=== PATIENT | female | born 1970 | race Two or more races ===

== ENCOUNTER 2023-01-27 14:52 | Inpatient (IN) | payer MEDICARE, MEDICAID ==
[~2023-01-27] VITALS: Ht 315 cm; Wt 104.8 kg
[2023-01-27] VITALS (8 sets, daily range): BP systolic 100–121; BP diastolic 41–65
[2023-01-27 16:20] LABS: BASOPHILS % 0.5 % (0.0-2.0); HEMATOCRIT. 35.6 % (36.0-48.0); HEMOGLOBIN. 11.4 g/dL (12.0-16.0); LYMPHOCYTES % 17.1 % (20.0-50.0); MEAN CORPUSCULAR VOLUME 84.3 fL (81.0-99.0); MEAN PLATELET VOLUME 8.5 fl (7.4-10.4); MONOCYTES % 4.4 % (2.0-8.0); PLATELET 325 x1000/uL (130-400); RED BLOOD CELL COUNT 4.23 mill/uL (4.2-5.4); RED CELL DISTRIBUTION WIDTH 16.6 % (11.6-14.6)
[2023-01-27 16:24] LABS: CHLORIDE 102 mEq/L (98-107)
[2023-01-27 16:27] LABS: BG BASE EXCESS 1.4 mmol/L (-2.0-2.0); BG CARBOXYHEMOGLOBIN 1.1 % (0.5-1.5); BG FRACTION INSPIRED OXYGEN 21; BG HCO3 ACT 24.5 mmol/L (22.0-26.0); BG METHEMOGLOBIN 0.3 % (0.0-1.5); BG OXYGEN SATURATION 93.9 % (92.0-98.5); BG OXYHEMOGLOBIN 92.6 % (94.0-97.0); BG PCO2 33.5 mmHg (35.0-45.0); BG PH 7.482 (7.350-7.450); BG SAMPLE SITE RIGHT RADIAL; BG TOTAL HEMOGLOBIN 11.2 g/dL (12.0-18.0); BG VENT MODE ROOM AIR
[2023-01-27 16:29] LABS: PROTHROMBIN TIME 10.9 sec (9.6-11.0)
[2023-01-27 16:33] LABS: ETHANOL BLOOD < 10 mg/dL
[2023-01-27] MEDS ORDERED: DEXAMETHASONE 4MG/ML 1ML VIAL IV ONE (17:30)
[2023-01-27] MEDS ORDERED: LEVETIRACETAM 1000MG PREMIX 100 ML IV ONE (17:30)
[2023-01-27] MEDS ORDERED: NICARDIPINE 40MG/200ML PREMIX 200 ML IV PRN (18:00)
[2023-01-27] MEDS ORDERED: SODIUM CHLORIDE 0.9% 1,000 ML IV SCH (20:45)
[2023-01-27] MEDS ORDERED: IPRATROPIUM/ALBUTEROL 0.5-3(2.5)MG/3ML NEB NEB PRN (20:45)
[2023-01-27] MEDS ORDERED: ONDANSETRON HCL 4MG/2ML INJ IV PRN (20:45)
[2023-01-27] MEDS ORDERED: ACETAMINOPHEN 650MG SUPP PR PRN ×2 (20:45)
[2023-01-27] MEDS ORDERED: MORPHINE SULFATE 2 MG/ML CPJ (NOT FOR IM USE) IV PRN (21:00)
[2023-01-27] MEDS ORDERED: NALOXONE HCL 0.4MG/ML VIAL IV PRN (21:15)
[2023-01-27] MEDS ORDERED: NICARDIPINE 100 MG in SODIUM CHLORIDE 0.9% 60 ML IV PRN ×2 (22:00→22:15)
[2023-01-27] MEDS: DEXT 5%/LACTATED RINGERS 1,000 ML IV SCH (22:07)
[2023-01-27] MEDS ORDERED: FERR325T30 PO (23:03)
[2023-01-27] MEDS ORDERED: AMOX-494 PO (23:26)
[2023-01-27] MEDS ORDERED: GABA-532 PO (23:26)
[2023-01-27] MEDS ORDERED: [UNRECOGNIZED DRUG - CODE] IM (23:26)
[2023-01-27] MEDS ORDERED: SENN-257 PO (23:26)
[2023-01-27] MEDS ORDERED: ATOR10TA69 PO (23:26)
[2023-01-27] MEDS ORDERED: METF-414 PO (23:26)
[2023-01-27] MEDS ORDERED: CHOL-36 PO (23:26)
[2023-01-27] MEDS ORDERED: PANT40TA51 PO (23:26)
[2023-01-27] MEDS: DEXAMETHASONE 4MG/ML 1ML VIAL IV SCH (23:45)
[2023-01-27] MEDS ORDERED: DEXTROSE 50% WATER 50ML SYRINGE IV PRN (23:45)
[2023-01-28] VITALS (92 sets, daily range): BP systolic 41–167; BP diastolic 27–106
[2023-01-28 01:37] LABS: CREATINE KINASE 54 IU/L (26-192); CREATINE KINASE MB FRACTION < 1.0 ng/mL (0.5-3.6)
[2023-01-28] MEDS: KCL 20MEQ/100ML PREMIX 100 ML IV SCH ×4 (01:47→13:49)
[2023-01-28 05:40] LABS: HEMATOCRIT. 34.1 % (36.0-48.0); HEMOGLOBIN. 10.9 g/dL (12.0-16.0); MEAN CORPUSCULAR HEMOGLOBIN 26.9 pg (28.0-32.0); MEAN CORPUSCULAR VOLUME 84.3 fL (81.0-99.0); MEAN PLATELET VOLUME 8.5 fl (7.4-10.4); MONOCYTES % 0.9 % (2.0-8.0); NEUTROPHILS % 84.1 % (40.0-76.0); PLATELET 326 x1000/uL (130-400); RED BLOOD CELL COUNT 4.05 mill/uL (4.2-5.4); RED CELL DISTRIBUTION WIDTH 17.3 % (11.6-14.6)
[2023-01-28] MEDS: DEXAMETHASONE 4MG/ML 1ML VIAL IV SCH ×3 (06:19→17:33)
[2023-01-28] MEDS: BLOOD SUGAR DIAGNOSTIC STRIP TEST SCH ×4 (06:19→20:02)
[2023-01-28] MEDS: INSULIN LISPRO 100 UNITS/ML SUBCUT SCH ×4 (06:24→20:19)
[2023-01-28 06:58] LABS: CHLORIDE 105 mEq/L (98-107)
[2023-01-28 07:15] LABS: HDL CHOLESTEROL 58 mg/dL (40-59); LDL CHOLESTEROL 65 mg/dL (5-100); PHOSPHORUS 2.6 mg/dL (2.5-4.9); T4 FREE 0.74 ng/dL (0.76-1.46)
[2023-01-28 08:33] LABS: BG BASE EXCESS 2.7 mmol/L (-2.0-2.0); BG CARBOXYHEMOGLOBIN 0.8 % (0.5-1.5); BG FRACTION INSPIRED OXYGEN 28; BG HCO3 ACT 26.4 mmol/L (22.0-26.0); BG METHEMOGLOBIN 0.3 % (0.0-1.5); BG OXYHEMOGLOBIN 95.9 % (94.0-97.0); BG PH 7.471 (7.350-7.450); BG PO2 97.2 mmHg (75.0-100.0); BG SAMPLE SITE RIGHT BRACHIAL; BG TOTAL HEMOGLOBIN 10.7 g/dL (12.0-18.0); BG VENT MODE NASAL CANNULA
[2023-01-28] MEDS ORDERED: MANNITOL 20% (20GM/100ML) BAG 500ML PREMIX IV ONE ×2 (08:45→22:15)
[2023-01-28] MEDS ORDERED: MANNITOL 20% 250 ML IV ONE (09:00)
[2023-01-28] MEDS ORDERED: MANNITOL 20% 100 ML IV ONE (09:00)
[2023-01-28] MEDS ORDERED: LEVETIRACETAM 500MG PREMIX 100 ML IV SCH (09:00)
[2023-01-28] MEDS: PANTOPRAZOLE SODIUM 40 MG/VIAL IV SCH (09:06)
[2023-01-28 09:09] LABS: CREATINE KINASE 52 IU/L (26-192); CREATINE KINASE MB FRACTION < 1.0 ng/mL (0.5-3.6)
[2023-01-28] MEDS ORDERED: MANNITOL 20% 100 ML IV NR (09:30)
[2023-01-28] MEDS: LEVETIRACETAM 500MG PREMIX 100 ML IV SCH ×2 (10:21→20:02)
[2023-01-28] MEDS: DEXT 5%/LACTATED RINGERS 1,000 ML IV SCH (13:49)
[2023-01-28] MEDS: DOPAMINE 400MG/250ML PREMIX 250 ML IV PRN (21:35)
[2023-01-28] MEDS ORDERED: MANNITOL 20% 125 ML IV NR (22:30)
[2023-01-29] VITALS (96 sets, daily range): BP systolic 87–162; BP diastolic 33–117
[2023-01-29] MEDS: DEXAMETHASONE 4MG/ML 1ML VIAL IV SCH ×4 (00:16→18:46)
[2023-01-29] MEDS: BLOOD SUGAR DIAGNOSTIC STRIP TEST SCH ×4 (05:44→20:33)
[2023-01-29 05:48] LABS: HEMATOCRIT 29.4 % (36.0-48.0); HEMOGLOBIN 10.3 g/dL (12.0-16.0); MEAN CORPUSCULAR HEMOGLOBIN 30.1 pg (28.0-32.0); MEAN CORPUSCULAR VOLUME 85.5 fL (81.0-99.0); PLATELET 142 x1000/uL (130-400); RED BLOOD CELL COUNT 3.44 mill/uL (4.2-5.4); RED CELL DISTRIBUTION WIDTH 17.7 % (11.6-14.6)
[2023-01-29 05:49] LABS: CHLORIDE 108 mEq/L (98-107)
[2023-01-29] MEDS: INSULIN LISPRO 100 UNITS/ML SUBCUT SCH ×4 (05:50→20:56)
[2023-01-29] MEDS: DEXT 5%/LACTATED RINGERS 1,000 ML IV SCH (08:41)
[2023-01-29] MEDS: LEVETIRACETAM 500MG PREMIX 100 ML IV SCH ×2 (08:42→20:55)
[2023-01-29] MEDS: PANTOPRAZOLE SODIUM 40 MG/VIAL IV SCH (08:42)
[2023-01-29] MEDS: DOPAMINE 400MG/250ML PREMIX 250 ML IV PRN (10:30)
[2023-01-29 18:14] LABS: CLARITY URINE CLOUDY (CLEAR); COLOR URINE YELLOW (YELLOW); KETONES URINE NEGATIVE (NEGATIVE); LEUKOCYTE ESTERASE URINE TRACE (NEGATIVE); NITRITE URINE POSITIVE (NEGATIVE); OCCULT BLOOD URINE TRACE (NEGATIVE); PROTEIN URINE NEGATIVE (NEGATIVE); SPECIFIC GRAVITY URINE 1.024 (1.005-1.030)
[2023-01-29 18:31] LABS: *AMPHETAMINES SCREEN URINE NEGATIVE (NEGATIVE); *BARBITURATES SCREEN URINE NEGATIVE (NEGATIVE); *BENZODIAZEPINES SCREEN URINE NEGATIVE (NEGATIVE); *COCAINE SCREEN URINE NEGATIVE (NEGATIVE); CANNABINOID URINE SCREEN NEGATIVE (NEGATIVE); METHADONE URINE SCREEN NEGATIVE (NEGATIVE); OPIATES URINE SCREEN NEGATIVE (NEGATIVE); PHENCYCLIDINE URINE SCREEN NEGATIVE (NEGATIVE)
[2023-01-29] MEDS ORDERED: ATROPINE SULFATE 1MG/10ML SYR IV NR (21:00)
[2023-01-30] VITALS (88 sets, daily range): BP systolic 53–244; BP diastolic 19–180
[2023-01-30] MEDS: DOPAMINE 400MG/250ML PREMIX 250 ML IV PRN ×2 (00:14→16:38)
[2023-01-30] MEDS: ATROPINE SULFATE 1MG/10ML SYR IV PRN ×2 (01:19→09:01)
[2023-01-30] MEDS: DEXT 5%/LACTATED RINGERS 1,000 ML IV SCH ×2 (01:46→16:22)
[2023-01-30 05:21] LABS: HEMATOCRIT 33.1 % (36.0-48.0); HEMOGLOBIN 10.8 g/dL (12.0-16.0); MEAN CORPUSCULAR HEMOGLOBIN 27.3 pg (28.0-32.0); MEAN CORPUSCULAR VOLUME 83.9 fL (81.0-99.0); PLATELET 324 x1000/uL (130-400); RED BLOOD CELL COUNT 3.94 mill/uL (4.2-5.4); RED CELL DISTRIBUTION WIDTH 17.3 % (11.6-14.6)
[2023-01-30 05:41] LABS: CHLORIDE 106 mEq/L (98-107)
[2023-01-30] MEDS: BLOOD SUGAR DIAGNOSTIC STRIP TEST SCH ×4 (06:18→21:19)
[2023-01-30] MEDS: INSULIN LISPRO 100 UNITS/ML SUBCUT SCH ×4 (06:19→21:00)
[2023-01-30] MEDS: LEVETIRACETAM 500MG PREMIX 100 ML IV SCH ×2 (09:01→21:19)
[2023-01-30] MEDS: PANTOPRAZOLE SODIUM 40 MG/VIAL IV SCH (09:01)
[2023-01-30] MEDS ORDERED: CEFTRIAXONE 1GM PREMIX 50 ML IV SCH (15:15)
[2023-01-30] MEDS: CEFTRIAXONE 1,000 MG in DEXTROSE 5% WATER 50 ML IV SCH (16:22)
[2023-01-30] MEDS: KCL 20MEQ/100ML PREMIX 100 ML IV SCH ×2 (16:22→19:37)
[2023-01-31] VITALS (50 sets, daily range): BP systolic 96–170; BP diastolic 0–146
[2023-01-31 05:06] LABS: HEMATOCRIT 34.3 % (36.0-48.0); MEAN CORPUSCULAR VOLUME 83.9 fL (81.0-99.0); PLATELET 308 x1000/uL (130-400); RED BLOOD CELL COUNT 4.09 mill/uL (4.2-5.4); RED CELL DISTRIBUTION WIDTH 17.1 % (11.6-14.6)
[2023-01-31 05:33] LABS: CHLORIDE 105 mEq/L (98-107)
[2023-01-31] MEDS: BLOOD SUGAR DIAGNOSTIC STRIP TEST SCH ×4 (05:53→20:40)
[2023-01-31] MEDS: INSULIN LISPRO 100 UNITS/ML SUBCUT SCH ×4 (06:28→20:39)
[2023-01-31] MEDS: PANTOPRAZOLE SODIUM 40 MG/VIAL IV SCH (09:05)
[2023-01-31] MEDS: LEVETIRACETAM 500MG PREMIX 100 ML IV SCH ×2 (09:05→20:37)
[2023-01-31] MEDS: DEXT 5%/LACTATED RINGERS 1,000 ML IV SCH (09:05)
[2023-01-31] MEDS: DOPAMINE 400MG/250ML PREMIX 250 ML IV PRN (09:06)
[2023-01-31] MEDS ORDERED: GADOTERATE MEGLUMINE 5 MMOL/10 ML VIAL IV ONE (10:13)
[2023-01-31] MEDS: CEFTRIAXONE 1,000 MG in DEXTROSE 5% WATER 50 ML IV SCH (18:27)
[2023-02-01] VITALS (65 sets, daily range): BP systolic 42–139; BP diastolic 16–83
[2023-02-01] MEDS ORDERED: DOPAMINE 400MG/250ML PREMIX 250 ML IV PRN (00:30)
[2023-02-01] MEDS: DEXT 5%/LACTATED RINGERS 1,000 ML IV SCH ×2 (05:21→17:09)
[2023-02-01 05:29] LABS: HEMATOCRIT 36.3 % (36.0-48.0); HEMOGLOBIN 11.8 g/dL (12.0-16.0); MEAN CORPUSCULAR HEMOGLOBIN 27.1 pg (28.0-32.0); MEAN CORPUSCULAR VOLUME 83.5 fL (81.0-99.0); PLATELET 294 x1000/uL (130-400); RED BLOOD CELL COUNT 4.34 mill/uL (4.2-5.4); RED CELL DISTRIBUTION WIDTH 16.8 % (11.6-14.6)
[2023-02-01 05:34] LABS: CHLORIDE 100 mEq/L (98-107)
[2023-02-01] MEDS: INSULIN LISPRO 100 UNITS/ML SUBCUT SCH ×4 (06:06→21:00)
[2023-02-01] MEDS: BLOOD SUGAR DIAGNOSTIC STRIP TEST SCH ×4 (06:06→21:09)
[2023-02-01] MEDS ORDERED: POTASSIUM CHLORIDE INJ 40 MEQ in DEXT 5% WATER 250 ML IV ONE (08:00)
[2023-02-01] MEDS: LEVETIRACETAM 500MG PREMIX 100 ML IV SCH ×2 (08:37→21:10)
[2023-02-01] MEDS: KCL 20MEQ/100ML X 2 FOR TOTAL KCL 40MEQ/200ML IV SCH ×2 (08:38→12:19)
[2023-02-01] MEDS: PANTOPRAZOLE SODIUM 40 MG/VIAL IV SCH (08:38)
[2023-02-01] MEDS: THEOPHYLLINE ANHYDROUS 80 MG/15 ML 120ML PO SCH ×2 (12:00→17:11)
[2023-02-01] MEDS: CEFTRIAXONE 1,000 MG in DEXTROSE 5% WATER 50 ML IV SCH (17:09)
[2023-02-02] VITALS (29 sets, daily range): BP systolic 55–219; BP diastolic 22–165
[2023-02-02] MEDS: THEOPHYLLINE ANHYDROUS 80 MG/15 ML 120ML PO SCH ×5 (05:37→23:22)
[2023-02-02] MEDS: BLOOD SUGAR DIAGNOSTIC STRIP TEST SCH ×4 (05:37→20:35)
[2023-02-02 05:49] LABS: HEMATOCRIT 37.3 % (36.0-48.0); HEMOGLOBIN 11.8 g/dL (12.0-16.0); MEAN CORPUSCULAR VOLUME 85.6 fL (81.0-99.0); PLATELET 262 x1000/uL (130-400); RED BLOOD CELL COUNT 4.36 mill/uL (4.2-5.4); RED CELL DISTRIBUTION WIDTH 17.3 % (11.6-14.6)
[2023-02-02 06:05] LABS: CHLORIDE 102 mEq/L (98-107)
[2023-02-02] MEDS: INSULIN LISPRO 100 UNITS/ML SUBCUT SCH ×4 (07:00→20:39)
[2023-02-02] MEDS: PANTOPRAZOLE SODIUM 40 MG/VIAL IV SCH (09:29)
[2023-02-02] MEDS: LEVETIRACETAM 500MG PREMIX 100 ML IV SCH ×2 (09:29→20:35)
[2023-02-02] MEDS: DEXT 5%/LACTATED RINGERS 1,000 ML IV SCH (09:59)
[2023-02-02] MEDS ORDERED: BISACODYL 10MG SUPP PR NR (18:00)
[2023-02-02] MEDS: CEFTRIAXONE 1,000 MG in DEXTROSE 5% WATER 50 ML IV SCH (18:14)
[2023-02-02 20:55] LABS: TOTAL IRON BINDING CAPACITY 411 ug/dL (250-450)
[2023-02-02 22:17] LABS: FERRITIN 9 ng/mL (10-291)
[2023-02-02 22:26] LABS: FOLIC ACID (FOLATE) SERUM >20 ng/mL ng/mL (>5.38); VITAMIN B12 SERUM 371 pg/mL (211-911)
[2023-02-03] VITALS (10 sets, daily range): BP systolic 95–126; BP diastolic 47–98
[2023-02-03] MEDS: DEXT 5%/LACTATED RINGERS 1,000 ML IV SCH (03:00)
[2023-02-03] MEDS: THEOPHYLLINE ANHYDROUS 80 MG/15 ML 120ML PO SCH ×3 (06:00→17:00)
[2023-02-03 06:24] LABS: BASOPHILS % 0.1 % (0.0-2.0); EOSINOPHILS % 2.2 % (0.0-5.0); HEMATOCRIT. 34.2 % (36.0-48.0); HEMOGLOBIN. 11.2 g/dL (12.0-16.0); LYMPHOCYTES % 36.9 % (20.0-50.0); MEAN CORPUSCULAR HEMOGLOBIN 27.5 pg (28.0-32.0); MEAN CORPUSCULAR VOLUME 83.9 fL (81.0-99.0); MEAN PLATELET VOLUME 8.4 fl (7.4-10.4); NEUTROPHILS % 53.8 % (40.0-76.0); PLATELET 266 x1000/uL (130-400); RED BLOOD CELL COUNT 4.08 mill/uL (4.2-5.4); RED CELL DISTRIBUTION WIDTH 17.1 % (11.6-14.6)
[2023-02-03] MEDS: INSULIN LISPRO 100 UNITS/ML SUBCUT SCH ×3 (08:00→17:00)
[2023-02-03] MEDS: BLOOD SUGAR DIAGNOSTIC STRIP TEST SCH ×3 (08:20→16:59)
[2023-02-03] MEDS: LEVETIRACETAM 500MG PREMIX 100 ML IV SCH (08:46)
[2023-02-03] MEDS ORDERED: FAMOTIDINE 20MG/2ML VIAL IV SCH (09:00)
[2023-02-03 09:40] LABS: CHLORIDE 103 mEq/L (98-107)
[2023-02-03] MEDS ORDERED: POTASSIUM CHLORIDE INJ 40 MEQ in DEXT 5% WATER 250 ML IV ONE (11:45)
[2023-02-03] MEDS ORDERED: IPRATROPIUM BROMIDE (0.02%) 0.5MG/2.5ML NEB HHN PRN (12:00)
[2023-02-03] MEDS ORDERED: IPRATROPIUM/ALBUTEROL 0.5-3(2.5)MG/3ML NEB HHN PRN (12:00)
[2023-02-03] MEDS ORDERED: ALBUTEROL (0.083%) 2.5MG/3ML NEB HHN PRN (12:00)
[2023-02-03] MEDS: KCL 20MEQ/100ML X 2 FOR TOTAL KCL 40MEQ/200ML IV SCH ×2 (13:12→15:37)
[2023-02-03] MEDS ORDERED: IRON SUCROSE COMPLEX 100 MG/5 ML ML IV SCH (16:00)
[2023-02-03] MEDS: CEFTRIAXONE 1,000 MG in DEXTROSE 5% WATER 50 ML IV SCH (16:57)
== END 2023-02-03 18:39 | DRG 65 ==
LOC: ER 14:52 → EDBEDREQSVC 19:55 → EDBEDREQ 19:55 → EDBEDREQTM 19:55 → MICUNO 20:44 → SUPCPDRO 21:13 → MICUSO 01-29 15:38 → 5EST 02-02 10:50
PROVIDERS: ADMIT Internal Medicine; ATTEND Internal Medicine
PROC: 4A00X4Z Measurement of Central Nervous Electrical Activity, External Approach (ICD-10-PCS; principal; 2023-01-28)
PROC: 02HV33Z Insertion of Infusion Device into Superior Vena Cava, Percutaneous Approach (ICD-10-PCS; 2023-01-29)
PROC: B548ZZA Ultrasonography of Superior Vena Cava, Guidance (ICD-10-PCS; 2023-01-29)
DX: I62.9 Nontraumatic intracranial hemorrhage, unspecified (principal); C79.9 Secondary malignant neoplasm of unspecified site; C95.90 Leukemia, unspecified not having achieved remission; G93.40 Encephalopathy, unspecified; I42.9 Cardiomyopathy, unspecified; N39.0 Urinary tract infection, site not specified; E11.9 Type 2 diabetes mellitus without complications; E87.6 Hypokalemia; I10 Essential (primary) hypertension; R06.03 Acute respiratory distress; I95.9 Hypotension, unspecified; E78.5 Hyperlipidemia, unspecified; R00.1 Bradycardia, unspecified; Z85.028 Personal history of other malignant neoplasm of stomach; Z85.830 Personal history of malignant neoplasm of bone; Z85.89 Personal history of malignant neoplasm of other organs and systems
CPT/HCPCS: 36415; 36573; 36600; 70496; 70553; 71045; 80048; 80053; 80061; 80305; 80320; 81003; 82375; 82550; 82553; 82607; 82728; 82746; 82805; 82962; 83036; 83540; 83550; 83605; 83735; 84100; 84145; 84439; 84443; 84481; 84484; 85025; 85027; 85044; 92610; 93005; 93306; 97110; 97162; 97167; 97530; 99291; A6261; A9577; C1725; C9113; J0461; J0696; J1100; J1265; J1815; J1953; J2270; J3480; J3490; J7060; A4315; A5200; G0480

== ENCOUNTER 2023-02-03 19:48 | Inpatient (IN) | payer MEDICARE, MEDICAID ==
[~2023-02-03] VITALS: Ht 162.6 cm; Wt 104.8 kg
[~2023-02-03 19:48] MED LIST: AMOX-494 PO; ATOR10TA69 PO; CHOL-36 PO; FERR325T30 PO; GABA-532 PO; METF-414 PO; PANT40TA51 PO; SENN-257 PO; [UNRECOGNIZED DRUG - CODE] IM
[2023-02-03 20:00] VITALS: BP 115/54
[2023-02-03] MEDS ORDERED: ACETAMINOPHEN 650MG SUPP PR PRN (20:45)
[2023-02-03] MEDS ORDERED: ONDANSETRON HCL 4MG/2ML INJ IV PRN (20:45)
[2023-02-03] MEDS ORDERED: ACETAMINOPHEN 325MG TABLET PO PRN (20:45)
[2023-02-03] MEDS ORDERED: ALBUTEROL (0.083%) 2.5MG/3ML NEB HHN PRN (20:45)
[2023-02-03] MEDS ORDERED: IPRATROPIUM BROMIDE (0.02%) 0.5MG/2.5ML NEB HHN PRN (20:45)
[2023-02-03] MEDS ORDERED: MORPHINE SULFATE 2 MG/ML CPJ (NOT FOR IM USE) IV PRN (20:45)
[2023-02-03] MEDS: BLOOD SUGAR DIAGNOSTIC STRIP TEST SCH (21:00)
[2023-02-03] MEDS ORDERED: DEXTROSE 50% WATER 50ML SYRINGE IV PRN (21:00)
[2023-02-03] MEDS: INSULIN LISPRO 100 UNITS/ML SUBCUT SCH (21:00)
[2023-02-03] MEDS ORDERED: KCL 20MEQ/100ML PREMIX 100 ML IV NR (22:00)
[2023-02-03] MEDS: LACTATED RINGERS 1,000 ML IV SCH (23:13)
[2023-02-03] MEDS: FAMOTIDINE 20MG/2ML VIAL IV SCH (23:14)
[2023-02-03] MEDS: LEVETIRACETAM 500MG PREMIX 100 ML IV SCH (23:32)
[2023-02-04] MEDS: THEOPHYLLINE ANHYDROUS 80 MG/15 ML 120ML PO SCH ×4 (06:00→17:26)
[2023-02-04] MEDS: BLOOD SUGAR DIAGNOSTIC STRIP TEST SCH ×4 (06:30→21:51)
[2023-02-04 06:48] LABS: BASOPHILS % 0.3 % (0.0-2.0); EOSINOPHILS % 3.3 % (0.0-5.0); HEMATOCRIT. 32.7 % (36.0-48.0); HEMOGLOBIN. 10.4 g/dL (12.0-16.0); LYMPHOCYTES % 21.2 % (20.0-50.0); MEAN CORPUSCULAR HEMOGLOBIN 27.3 pg (28.0-32.0); MEAN CORPUSCULAR VOLUME 85.5 fL (81.0-99.0); MEAN PLATELET VOLUME 8.3 fl (7.4-10.4); MONOCYTES % 10.3 % (2.0-8.0); NEUTROPHILS % 64.9 % (40.0-76.0); PLATELET 218 x1000/uL (130-400); RED BLOOD CELL COUNT 3.83 mill/uL (4.2-5.4); RED CELL DISTRIBUTION WIDTH 17.2 % (11.6-14.6)
[2023-02-04 07:59] LABS: CHLORIDE 105 mEq/L (98-107)
[2023-02-04 08:00] VITALS: BP 108/55
[2023-02-04] MEDS: LEVETIRACETAM 500MG PREMIX 100 ML IV SCH ×2 (08:02→21:41)
[2023-02-04] MEDS: FAMOTIDINE 20MG/2ML VIAL IV SCH ×2 (08:02→21:41)
[2023-02-04] MEDS: INSULIN LISPRO 100 UNITS/ML SUBCUT SCH ×4 (08:13→21:00)
[2023-02-04] MEDS: LACTATED RINGERS 1,000 ML IV SCH (16:02)
[2023-02-04] MEDS ORDERED: NALOXONE HCL 0.4MG/ML VIAL IV PRN (16:45)
[2023-02-04] MEDS ORDERED: CEFTRIAXONE 1,000 MG in DEXTROSE 5% WATER 50 ML IV SCH (17:00)
[2023-02-04] MEDS ORDERED: IRON SUCROSE COMPLEX 100 MG/5 ML ML IV SCH (18:00)
[2023-02-04] MEDS: IRON SUCROSE COMPLEX 200 MG in SODIUM CHLORIDE 0.9% 100 ML IV SCH (18:30)
[2023-02-04 20:30] VITALS: BP 134/55
[2023-02-05] MEDS: THEOPHYLLINE ANHYDROUS 80 MG/15 ML 120ML PO SCH ×4 (05:32→17:30)
[2023-02-05] MEDS: BLOOD SUGAR DIAGNOSTIC STRIP TEST SCH ×4 (05:33→21:26)
[2023-02-05 08:00] VITALS: BP 130/56
[2023-02-05] MEDS: FAMOTIDINE 20MG/2ML VIAL IV SCH ×2 (08:12→21:24)
[2023-02-05] MEDS: LEVETIRACETAM 500MG PREMIX 100 ML IV SCH ×2 (08:12→21:25)
[2023-02-05] MEDS: INSULIN LISPRO 100 UNITS/ML SUBCUT SCH ×4 (09:00→21:00)
[2023-02-05] MEDS: IRON SUCROSE COMPLEX 200 MG in SODIUM CHLORIDE 0.9% 100 ML IV SCH (17:30)
[2023-02-05 20:15] VITALS: BP 139/40
[2023-02-05] MEDS: LACTATED RINGERS 1,000 ML IV SCH (21:43)
[2023-02-06] MEDS: THEOPHYLLINE ANHYDROUS 80 MG/15 ML 120ML PO SCH ×4 (05:20→18:26)
[2023-02-06] MEDS: INSULIN LISPRO 100 UNITS/ML SUBCUT SCH ×3 (07:44→21:00)
[2023-02-06 07:59] VITALS: BP 121/63
[2023-02-06] MEDS: FAMOTIDINE 20MG/2ML VIAL IV SCH ×2 (08:30→20:55)
[2023-02-06] MEDS: LEVETIRACETAM 500MG PREMIX 100 ML IV SCH ×2 (08:30→20:55)
[2023-02-06 20:01] VITALS: BP 134/76
[2023-02-06] MEDS: BLOOD SUGAR DIAGNOSTIC STRIP TEST SCH (20:55)
[2023-02-07] MEDS: LACTATED RINGERS 1,000 ML IV SCH ×2 (00:27→09:40)
[2023-02-07] MEDS: THEOPHYLLINE ANHYDROUS 80 MG/15 ML 120ML PO SCH ×4 (00:27→18:33)
[2023-02-07] MEDS: BLOOD SUGAR DIAGNOSTIC STRIP TEST SCH ×2 (06:49→21:00)
[2023-02-07 08:00] VITALS: BP 137/56
[2023-02-07] MEDS: LEVETIRACETAM 500MG PREMIX 100 ML IV SCH ×2 (09:39→21:09)
[2023-02-07] MEDS: FAMOTIDINE 20MG/2ML VIAL IV SCH ×2 (09:44→21:09)
[2023-02-07 15:17] LABS: BASOPHILS % 0.4 % (0.0-2.0); EOSINOPHILS % 0.6 % (0.0-5.0); HEMATOCRIT. 36.4 % (36.0-48.0); HEMOGLOBIN. 11.8 g/dL (12.0-16.0); LYMPHOCYTES % 26.4 % (20.0-50.0); MEAN CORPUSCULAR HEMOGLOBIN 27.6 pg (28.0-32.0); MEAN CORPUSCULAR VOLUME 84.8 fL (81.0-99.0); MEAN PLATELET VOLUME 7.9 fl (7.4-10.4); MONOCYTES % 8.3 % (2.0-8.0); NEUTROPHILS % 64.3 % (40.0-76.0); PLATELET 341 x1000/uL (130-400); RED BLOOD CELL COUNT 4.29 mill/uL (4.2-5.4); RED CELL DISTRIBUTION WIDTH 17.5 % (11.6-14.6)
[2023-02-07 15:35] LABS: CHLORIDE 100 mEq/L (98-107)
[2023-02-07 15:40] LABS: PHOSPHORUS 2.6 mg/dL (2.5-4.9)
[2023-02-07 20:00] VITALS: BP 105/56
[2023-02-07] MEDS: INSULIN LISPRO 100 UNITS/ML SUBCUT SCH (21:00)
[2023-02-07] MEDS ORDERED: POTASSIUM CHLORIDE 20MEQ/PACKET PO NR (22:00)
[2023-02-08] MEDS: LACTATED RINGERS 1,000 ML IV SCH ×2 (00:45→06:20)
[2023-02-08] MEDS: THEOPHYLLINE ANHYDROUS 80 MG/15 ML 120ML PO SCH ×4 (06:00→18:40)
[2023-02-08] MEDS: BLOOD SUGAR DIAGNOSTIC STRIP TEST SCH ×2 (06:20→20:37)
[2023-02-08] MEDS: INSULIN LISPRO 100 UNITS/ML SUBCUT SCH ×2 (06:21→20:37)
[2023-02-08 06:42] LABS: BASOPHILS % 0.4 % (0.0-2.0); EOSINOPHILS % 1.1 % (0.0-5.0); HEMATOCRIT. 31.8 % (36.0-48.0); HEMOGLOBIN. 10.3 g/dL (12.0-16.0); LYMPHOCYTES % 32.4 % (20.0-50.0); MEAN CORPUSCULAR HEMOGLOBIN 27.9 pg (28.0-32.0); MEAN CORPUSCULAR VOLUME 85.6 fL (81.0-99.0); MEAN PLATELET VOLUME 8.4 fl (7.4-10.4); MONOCYTES % 8.4 % (2.0-8.0); NEUTROPHILS % 57.7 % (40.0-76.0); PLATELET 284 x1000/uL (130-400); RED BLOOD CELL COUNT 3.71 mill/uL (4.2-5.4); RED CELL DISTRIBUTION WIDTH 17.1 % (11.6-14.6)
[2023-02-08 07:27] LABS: CHLORIDE 108 mEq/L (98-107)
[2023-02-08 07:59] VITALS: BP 97/59
[2023-02-08] MEDS: LEVETIRACETAM 500MG PREMIX 100 ML IV SCH ×2 (10:03→20:38)
[2023-02-08] MEDS: FAMOTIDINE 20MG/2ML VIAL IV SCH ×2 (10:03→20:38)
[2023-02-08] MEDS ORDERED: POTASSIUM CHLORIDE 20MEQ/PACKET PO NR (11:00)
[2023-02-08 20:00] VITALS: BP 108/78
[2023-02-09] MEDS: LACTATED RINGERS 1,000 ML IV SCH (00:04)
[2023-02-09] MEDS: THEOPHYLLINE ANHYDROUS 80 MG/15 ML 120ML PO SCH ×5 (00:06→17:57)
[2023-02-09] MEDS: INSULIN LISPRO 100 UNITS/ML SUBCUT SCH ×2 (05:51→20:39)
[2023-02-09] MEDS: BLOOD SUGAR DIAGNOSTIC STRIP TEST SCH ×2 (05:51→20:39)
[2023-02-09 06:54] LABS: BASOPHILS % 0.4 % (0.0-2.0); EOSINOPHILS % 0.9 % (0.0-5.0); HEMATOCRIT. 33.4 % (36.0-48.0); HEMOGLOBIN. 10.7 g/dL (12.0-16.0); LYMPHOCYTES % 30.5 % (20.0-50.0); MEAN CORPUSCULAR HEMOGLOBIN 28.1 pg (28.0-32.0); MEAN CORPUSCULAR VOLUME 87.6 fL (81.0-99.0); MEAN PLATELET VOLUME 8.3 fl (7.4-10.4); MONOCYTES % 7.8 % (2.0-8.0); NEUTROPHILS % 60.4 % (40.0-76.0); PLATELET 272 x1000/uL (130-400); RED BLOOD CELL COUNT 3.81 mill/uL (4.2-5.4); RED CELL DISTRIBUTION WIDTH 17.4 % (11.6-14.6)
[2023-02-09 07:22] LABS: CHLORIDE 106 mEq/L (98-107)
[2023-02-09 07:41] VITALS: BP 110/52
[2023-02-09] MEDS: FAMOTIDINE 20MG/2ML VIAL IV SCH ×2 (08:01→20:28)
[2023-02-09] MEDS: LEVETIRACETAM 500MG PREMIX 100 ML IV SCH ×2 (08:01→20:28)
[2023-02-09 19:53] VITALS: BP 136/41
[2023-02-10] MEDS: THEOPHYLLINE ANHYDROUS 80 MG/15 ML 120ML PO SCH ×4 (00:11→18:25)
[2023-02-10] MEDS: LACTATED RINGERS 1,000 ML IV SCH ×2 (02:21→18:25)
[2023-02-10] MEDS: BLOOD SUGAR DIAGNOSTIC STRIP TEST SCH ×2 (06:33→21:00)
[2023-02-10] MEDS: INSULIN LISPRO 100 UNITS/ML SUBCUT SCH ×2 (06:33→21:00)
[2023-02-10 08:00] VITALS: BP 110/45
[2023-02-10] MEDS: LACTULOSE 20G/30ML UDC PO PRN (09:36)
[2023-02-10] MEDS: LEVETIRACETAM 500MG PREMIX 100 ML IV SCH ×2 (09:36→21:24)
[2023-02-10] MEDS: FAMOTIDINE 20MG/2ML VIAL IV SCH ×2 (09:36→21:24)
[2023-02-10 20:00] VITALS: BP 102/47
[2023-02-11] MEDS: THEOPHYLLINE ANHYDROUS 80 MG/15 ML 120ML PO SCH ×4 (00:33→17:19)
[2023-02-11] MEDS: INSULIN LISPRO 100 UNITS/ML SUBCUT SCH ×2 (06:04→21:00)
[2023-02-11] MEDS: BLOOD SUGAR DIAGNOSTIC STRIP TEST SCH ×2 (06:05→21:00)
[2023-02-11 07:48] VITALS: BP 118/69
[2023-02-11] MEDS: LEVETIRACETAM 500MG PREMIX 100 ML IV SCH ×2 (09:14→21:45)
[2023-02-11] MEDS: FAMOTIDINE 20MG/2ML VIAL IV SCH ×2 (09:14→21:45)
[2023-02-11] MEDS: LACTATED RINGERS 1,000 ML IV SCH (12:05)
[2023-02-11] MEDS: DOCUSATE SODIUM 250MG CAPSULE PO SCH ×2 (12:57→13:22)
[2023-02-11 19:44] VITALS: BP 136/54
[2023-02-12] MEDS: THEOPHYLLINE ANHYDROUS 80 MG/15 ML 120ML PO SCH ×5 (06:11→23:59)
[2023-02-12 08:00] VITALS: BP 105/48
[2023-02-12] MEDS: INSULIN LISPRO 100 UNITS/ML SUBCUT SCH ×2 (08:00→20:43)
[2023-02-12] MEDS: LACTATED RINGERS 1,000 ML IV SCH ×2 (08:30→20:43)
[2023-02-12] MEDS: BLOOD SUGAR DIAGNOSTIC STRIP TEST SCH ×2 (08:41→20:42)
[2023-02-12] MEDS: LEVETIRACETAM 500MG PREMIX 100 ML IV SCH ×2 (08:48→20:37)
[2023-02-12] MEDS: FAMOTIDINE 20MG/2ML VIAL IV SCH (08:48)
[2023-02-12] MEDS: DOCUSATE SODIUM 250MG CAPSULE PO SCH ×2 (08:48→17:10)
[2023-02-12 19:51] VITALS: BP 138/57
[2023-02-12] MEDS: FAMOTIDINE 20MG TABLET PO SCH (20:37)
[2023-02-13] MEDS: THEOPHYLLINE ANHYDROUS 80 MG/15 ML 120ML PO SCH ×3 (06:45→18:00)
[2023-02-13] MEDS: BLOOD SUGAR DIAGNOSTIC STRIP TEST SCH ×2 (07:00→21:00)
[2023-02-13 08:00] VITALS: BP 118/59
[2023-02-13] MEDS: INSULIN LISPRO 100 UNITS/ML SUBCUT SCH ×2 (09:00→21:00)
[2023-02-13] MEDS: DOCUSATE SODIUM 250MG CAPSULE PO SCH ×2 (10:27→17:43)
[2023-02-13] MEDS: FAMOTIDINE 20MG TABLET PO SCH ×2 (10:28→21:33)
[2023-02-13] MEDS: LEVETIRACETAM 500MG PREMIX 100 ML IV SCH ×2 (11:07→21:33)
[2023-02-13] MEDS: LACTATED RINGERS 1,000 ML IV SCH (16:22)
[2023-02-13 22:22] VITALS: BP 118/59
[2023-02-14] MEDS: THEOPHYLLINE ANHYDROUS 80 MG/15 ML 120ML PO SCH ×4 (01:00→17:40)
[2023-02-14] MEDS: INSULIN LISPRO 100 UNITS/ML SUBCUT SCH ×2 (06:19→21:00)
[2023-02-14] MEDS: BLOOD SUGAR DIAGNOSTIC STRIP TEST SCH ×2 (06:20→21:41)
[2023-02-14 08:00] VITALS: BP 106/71
[2023-02-14] MEDS: FAMOTIDINE 20MG TABLET PO SCH ×2 (08:56→21:14)
[2023-02-14] MEDS: DOCUSATE SODIUM 250MG CAPSULE PO SCH ×2 (08:56→17:40)
[2023-02-14] MEDS: LEVETIRACETAM 500MG PREMIX 100 ML IV SCH ×2 (08:56→21:14)
[2023-02-14] MEDS: LACTATED RINGERS 1,000 ML IV SCH ×2 (08:57→23:25)
[2023-02-14] MEDS: LACTULOSE 20G/30ML UDC PO PRN (12:31)
[2023-02-14 20:00] VITALS: BP 138/65
[2023-02-15] MEDS: THEOPHYLLINE ANHYDROUS 80 MG/15 ML 120ML PO SCH ×4 (06:14→17:08)
[2023-02-15 08:00] VITALS: BP 109/88
[2023-02-15] MEDS: FAMOTIDINE 20MG TABLET PO SCH ×2 (09:47→21:12)
[2023-02-15] MEDS: LEVETIRACETAM 500MG PREMIX 100 ML IV SCH ×2 (09:47→21:12)
[2023-02-15] MEDS: DOCUSATE SODIUM 250MG CAPSULE PO SCH ×2 (09:47→17:08)
[2023-02-15] MEDS: LACTULOSE 20G/30ML UDC PO PRN (09:50)
[2023-02-15] MEDS ORDERED: BISACODYL 10MG SUPP PR PRN (17:00)
[2023-02-15 19:50] VITALS: BP 134/56
[2023-02-15] MEDS ORDERED: NA PHOS,M-B/NA PHOS,DI-BA ENEMA 118ML PR NR (20:00)
[2023-02-16] MEDS: THEOPHYLLINE ANHYDROUS 80 MG/15 ML 120ML PO SCH ×5 (00:04→23:44)
[2023-02-16 04:28] LABS: CLARITY URINE CLEAR (CLEAR); COLOR URINE YELLOW (YELLOW); KETONES URINE NEGATIVE (NEGATIVE); LEUKOCYTE ESTERASE URINE 2+ (NEGATIVE); NITRITE URINE NEGATIVE (NEGATIVE); OCCULT BLOOD URINE NEGATIVE (NEGATIVE); PH URINE 6.5 (4.5-8.0); PROTEIN URINE NEGATIVE (NEGATIVE); SPECIFIC GRAVITY URINE 1.014 (1.005-1.030)
[2023-02-16 08:00] VITALS: BP 104/53
[2023-02-16] MEDS: DOCUSATE SODIUM 250MG CAPSULE PO SCH ×2 (08:15→17:00)
[2023-02-16] MEDS: LEVETIRACETAM 500MG PREMIX 100 ML IV SCH (08:15)
[2023-02-16] MEDS: FAMOTIDINE 20MG TABLET PO SCH ×2 (08:15→20:42)
[2023-02-16] MEDS ORDERED: ONDANSETRON 4MG ODT PO PRN (16:15)
[2023-02-16 20:00] VITALS: BP 106/54
[2023-02-16] MEDS: LEVETIRACETAM 500MG TABLET PO SCH (20:42)
[2023-02-17 06:14] LABS: BASOPHILS % 0.7 % (0.0-2.0); EOSINOPHILS % 2.6 % (0.0-5.0); HEMATOCRIT. 32.1 % (36.0-48.0); HEMOGLOBIN. 10.4 g/dL (12.0-16.0); LYMPHOCYTES % 44.2 % (20.0-50.0); MEAN CORPUSCULAR VOLUME 86.7 fL (81.0-99.0); MEAN PLATELET VOLUME 7.7 fl (7.4-10.4); MONOCYTES % 9.6 % (2.0-8.0); NEUTROPHILS % 42.9 % (40.0-76.0); PLATELET 315 x1000/uL (130-400); RED CELL DISTRIBUTION WIDTH 18.8 % (11.6-14.6)
[2023-02-17] MEDS: THEOPHYLLINE ANHYDROUS 80 MG/15 ML 120ML PO SCH ×3 (06:37→18:00)
[2023-02-17 08:00] VITALS: BP 111/44
[2023-02-17 08:20] LABS: CHLORIDE 107 mEq/L (98-107)
[2023-02-17] MEDS: DOCUSATE SODIUM 250MG CAPSULE PO SCH ×2 (08:40→18:22)
[2023-02-17] MEDS: LEVETIRACETAM 500MG TABLET PO SCH ×2 (08:40→21:35)
[2023-02-17] MEDS: FAMOTIDINE 20MG TABLET PO SCH ×2 (08:40→21:35)
[2023-02-17] MEDS ORDERED: POTASSIUM CHLORIDE 20MEQ/PACKET PO NR (14:30)
[2023-02-17 20:00] VITALS: BP 111/54
[2023-02-18] MEDS: THEOPHYLLINE ANHYDROUS 80 MG/15 ML 120ML PO SCH ×4 (06:29→17:21)
[2023-02-18 07:26] LABS: CHLORIDE 109 mEq/L (98-107)
[2023-02-18 08:00] VITALS: BP 119/64
[2023-02-18] MEDS: FAMOTIDINE 20MG TABLET PO SCH ×2 (09:09→21:50)
[2023-02-18] MEDS: LEVETIRACETAM 500MG TABLET PO SCH ×2 (09:09→21:50)
[2023-02-18] MEDS: DOCUSATE SODIUM 250MG CAPSULE PO SCH ×2 (09:09→17:21)
[2023-02-18 20:30] VITALS: BP 114/50
[2023-02-19] MEDS: THEOPHYLLINE ANHYDROUS 80 MG/15 ML 120ML PO SCH ×4 (06:59→17:38)
[2023-02-19 08:00] VITALS: BP 121/54
[2023-02-19] MEDS: FAMOTIDINE 20MG TABLET PO SCH ×2 (08:36→20:43)
[2023-02-19] MEDS: DOCUSATE SODIUM 250MG CAPSULE PO SCH (08:36)
[2023-02-19] MEDS: LEVETIRACETAM 500MG TABLET PO SCH ×2 (08:36→20:43)
[2023-02-19] MEDS: DOCUSATE SODIUM SUGAR FREE 100MG/10ML UDC PO SCH ×2 (09:00→16:31)
[2023-02-19 20:00] VITALS: BP 116/56
[2023-02-20] MEDS: THEOPHYLLINE ANHYDROUS 80 MG/15 ML 120ML PO SCH ×3 (00:09→11:04)
[2023-02-20 08:00] VITALS: BP 113/61
[2023-02-20] MEDS: DOCUSATE SODIUM SUGAR FREE 100MG/10ML UDC PO SCH (08:39)
[2023-02-20] MEDS: FAMOTIDINE 20MG TABLET PO SCH (08:39)
[2023-02-20] MEDS: LEVETIRACETAM 500MG TABLET PO SCH (08:40)
[2023-02-20 10:10] VITALS: BP 113/62
[2023-02-20] MEDS ORDERED: NITROFURANTOIN 100MG M/M CAPSULE PO SCH (13:00)
== END 2023-02-20 15:43 | DRG 64 ==
PROVIDERS: ADMIT Psychiatry & Neurology Neurology; ATTEND Internal Medicine
DX: I63.9 Cerebral infarction, unspecified (principal); I61.5 Nontraumatic intracerebral hemorrhage, intraventricular; C16.9 Malignant neoplasm of stomach, unspecified; G93.40 Encephalopathy, unspecified; C95.90 Leukemia, unspecified not having achieved remission; F01.53 Vascular dementia, unspecified severity, with mood disturbance; N39.0 Urinary tract infection, site not specified; C79.51 Secondary malignant neoplasm of bone; D64.9 Anemia, unspecified; E66.01 Morbid (severe) obesity due to excess calories; E78.5 Hyperlipidemia, unspecified; E87.6 Hypokalemia; I10 Essential (primary) hypertension; R00.1 Bradycardia, unspecified; R13.10 Dysphagia, unspecified; R32 Unspecified urinary incontinence; R15.9 Full incontinence of feces; R07.9 Chest pain, unspecified; R06.03 Acute respiratory distress; Z20.822 Contact with and (suspected) exposure to COVID-19; E11.40 Type 2 diabetes mellitus with diabetic neuropathy, unspecified; B96.20 Unspecified Escherichia coli [E. coli] as the cause of diseases classified elsewhere; R53.1 Weakness; M62.50 Muscle wasting and atrophy, not elsewhere classified, unspecified site; K21.9 Gastro-esophageal reflux disease without esophagitis; I69.320 Aphasia following cerebral infarction; Z68.39 Body mass index [BMI] 39.0-39.9, adult; Z85.028 Personal history of other malignant neoplasm of stomach; Z79.899 Other long term (current) drug therapy
CPT/HCPCS: 36415; 74230; 80048; 80053; 81003; 82378; 82962; 83735; 84100; 85025; 87186; 87426; 92523; 92610; 92611; 93970; 97110; 97112; 97116; 97162; 97166; 97530; 97535; C1893; J0696; J1953; J3480; J3490; J7050; J7060; J7120

== ENCOUNTER 2024-08-04 19:10 | Emergency (ER) | payer MEDICAID, MEDICARE ==
[~2024-08-04] VITALS: Ht 167.6 cm; Wt 72.5 kg
[~2024-08-04 19:10] MED LIST changes: -SENN-257 PO; +SENN-362 PO
[2024-08-04 20:09] VITALS: BP 115/73; PULSE 60; RESP 18; TEMP 98.5; O2SAT 100
== END 2024-08-04 20:01 | disposition left against medical advice (07) ==
LOC: ER 19:10
DX: R10.9 Unspecified abdominal pain (principal); Z53.21 Procedure and treatment not carried out due to patient leaving prior to being seen by health care provider